=== PATIENT | male | born 1995 | race Two or more races ===

== ENCOUNTER 2016-04-05 21:09 | Emergency (ER) | payer OTHER ==
--- NOTE | 2016-04-05 21:31 | EDPHY ---
H & P Stated Complaint: CP/ FLU like symptoms - Personal History Current Tetanus/Diphtheria Vaccine: Unsure Current Tetanus Diphtheria and Acellular Pertussis (TDAP): Unsure - Medical/Surgical History Hx Asthma: No Hx Chronic Respiratory Disease: No Hx Diabetes: No Hx Cardiac Disease: No Hx Renal Disease: No Hx Cirrhosis: No Hx Alcoholism: No Hx HIV/AIDS: No Hx Splenectomy or Spleen Trauma: No - Social History Smoking Status: Current some day smoker Time Seen by Provider: 04/05/16 21:24 HPI/ROS: CHIEF COMPLAINT: Flu-like symptoms, chest pain HISTORY OF PRESENT ILLNESS: 20-year-old male whom, otherwise generally healthy with no history of chronic respiratory disease, states that 4 playing soccer yesterday he had a brief episode of midsternal chest plain however he was able to play 1 hour of aggressive soccer without eliciting chest pain with exertion, dyspnea with exertion, syncope. Today started to notice flu-like symptoms including fever, chills, myalgias. No cough. No nuchal rigidity. No headache. no current complaints of chest pain. No dyspnea. No rash. No international travel in the past month. No influenza vaccination. PRIMARY CARE PROVIDER: Dominik REVIEW OF SYSTEMS: A ten point review of systems was performed and is negative with the exception of the items mentioned in the HPI PAST MEDICAL & SURGICAL HISTORY: No History of coronary artery disease, coagulopathic disorder, hyperlipidemia SOCIAL HISTORY:intermittent cigarette use. No cocaine use. FAMILY HISTORY: No family history of thromboembolic disorder or premature coronary artery disease. PHYSICAL EXAM (Prior to examination, patient consented to physical exam, hands were washed and my usual and customary physical exam procedures followed) 1) GENERAL: Well-developed, well-nourished, alert and oriented. Appears to be in no acute distress. 2) HEAD: Normocephalic, atraumatic 3) HEENT: Pupils equal, round, reactive to light bilaterally. Sclera anicteric. Nasopharynx, oropharynx, clear, no lesions. Ears bilaterally with normal tympanic membranes. 4) NECK: Full range of motion, no meningeal signs. 5) LUNGS: Clear auscultation bilaterally, no wheezes, no rhonchi, no retractions. 6) HEART: Regular rate and rhythm, no murmur, no heave, no gallop. 7) ABDOMEN: No guarding, no rebound, no focal tenderness, negative McBurney's, negative Kenyon's, negative Rovsing's, negative peritoneal sign, 8) MUSCULOSKELETAL: Moving all extremities, no focal areas of tenderness, no obvious trauma. No peripheral edema or discoloration. 9) BACK: No CVA tenderness, no midline vertebral tenderness, no fluctuance, no step-off, no obvious trauma, no visual or palpable abnormality. 10) SKIN: No rash, no petechiae. 11) Psychiatric: Patient is oriented X 3, there is no agitation. DIFFERENTIAL DIAGNOSIS: In no particular order, including but not limited to myocardial ischemia, pulmonary embolus, chest wall pain, pleural inflammation and pulmonary infectious causes. (Richy Hernandez) Constitutional: Initial Vital Signs Temperature (C) 37.2 C 04/05/16 21:19 Heart Rate 97 04/05/16 21:19 Respiratory Rate 14 04/05/16 21:19 Blood Pressure 132/66 H 04/05/16 21:19 O2 Sat (%) 96 04/05/16 21:19 O2 Delivery Mode Room Air Allergies/Adverse Reactions: No Known Allergies Allergy (Unverified 04/05/16 21:19) Home Medications: Medication Instructions Recorded AZITHROMYCIN [Z-PACK] 500 mg PO DAILY #1 packet 04/05/16 Albuterol [Proventil Inhaler HFA 1 - 2 puffs IH Q4PRN PRN #1 mdi 04/05/16 (*)] Medical Decision Making ED Course/Re-evaluation: The patient was re-evaluated with serial examinations. We discussed his diagnostic results negative for influenza a, negative chest x-ray show no pneumothorax or hemothorax, normal sinus rhythm on the EKG. Regarding his complaints of chest pain, in the absence of significant family history of premature coronary artery disease, absence of cocaine use, absence of thromboembolic disorder, negative perc score, I think that NC, pulmonary embolus , less than likely in this patient. We discussed URI treatment. I have given him a DuoNeb treatment, will discharge him home with albuterol, azithromycin and recommend close follow-up. In the meantime should she developed chest pain , dyspnea, or any other symptoms, needs to return to the ER immediately for re- evaluation. He feels comfortable being discharged (Richy Hernandez) I did not see this patient while he was in the emergency department. However his care was discussed with the PA while the patient was in the department. I agree with treatment plan and management (Colin Dias) - Data Points Medications Given: Discontinued Medications Albuterol/Ipratropium (Duoneb) 3 ml IH EDNOW ONE Stop: 04/05/16 22:37 Last Admin: 04/05/16 23:01 Dose: 3 ml Departure - Departure Disposition: Home, Routine, Self-Care Clinical Impression: Upper respiratory infection Condition: Good Instructions: Upper Respiratory Infection (ED) Additional Instructions: Return to the emergency department immediately for change in breathing habits, if you have chest pain, she of back pain, shortness of breath, change in voice, change in swallowing habits, change in mental status, or any other symptoms that concern you. Adult Pain & Fever Control: We recommend Acetaminophen (Tylenol) and Ibuprofen (Motrin,Advil) for pain and fever control. When fever is high or pain severe, both drugs can be used at the same time, but at different intervals. Please note the time differences. Your dose is: Acetaminophen 1000mg every 6 hours Ibuprofen 800mg every 6 hours with food OR . Note: do not take Acetaminophen with Hydrocodone (Vicodin, Lortab) or Oycodone (Percocet). These medications also contain Acetaminophen. No more than 3000mg of Acetaminophen should be taken in 24 hours (for an adult). Referrals: DOMINIK Riddle,. [Clinic] - 04/08/16 Stand Alone Forms: School Excuse Prescriptions: Albuterol [Proventil Inhaler HFA (*)] 1 - 2 puffs IH Q4PRN PRN #1 mdi PRN Reason: Cough, Moderate AZITHROMYCIN [Z-PACK] 500 mg PO DAILY #1 packet
--- NOTE | 2016-04-05 21:37 | CPEKG ---
Heart Rate: 90 RR Interval: 667 P-R Interval: 172 QRSD Interval: 94 QT Interval: 352 QTC Interval: 431 P Hugo: 68 QRS Hugo: 60 T Wave Hugo: -10 EKG Severity - BORDERLINE ECG - EKG Impression: SINUS RHYTHM EKG Impression: BORDERLINE T ABNORMALITIES, INFERIOR LEADS Electronically Signed By: Colin Dias 05-Apr-2016 23:26:45
[2016-04-05] MEDS ORDERED: IPRATROPIUM/ALBUTEROL 3 ML DEYVIAL IH ONE (22:36)
[2016-04-05 23:11] VITALS: BP 141/83; PULSE 96; RESP 18; TEMP 99.3; O2SAT 95
== END 2016-04-05 23:10 | disposition home or self-care (01) ==
DX: J06.9 Acute upper respiratory infection, unspecified (principal); F17.200 Nicotine dependence, unspecified, uncomplicated

== ENCOUNTER 2017-04-28 13:53 | Emergency (ER) | payer OTHER ==
[2017-04-28 14:03] VITALS: RESP 16; O2SAT 95
--- NOTE | 2017-04-28 15:00 | EDPHY ---
H & P Stated Complaint: cough Time Seen by Provider: 04/28/17 14:56 - Personal History Current Tetanus/Diphtheria Vaccine: Yes Current Tetanus Diphtheria and Acellular Pertussis (TDAP): Yes - Medical/Surgical History Hx Asthma: No Hx Chronic Respiratory Disease: No Hx Diabetes: No Hx Cardiac Disease: No Hx Renal Disease: No Hx Cirrhosis: No Hx Alcoholism: No Hx HIV/AIDS: No Hx Splenectomy or Spleen Trauma: No Other PMH: denies - Social History Smoking Status: Current some day smoker Constitutional: Initial Vital Signs Temperature (C) 36.7 C 04/28/17 14:01 Heart Rate 83 04/28/17 14:01 Respiratory Rate 16 04/28/17 14:01 Blood Pressure 129/97 H 04/28/17 14:01 O2 Sat (%) 95 04/28/17 14:01 O2 Delivery Mode Room Air Allergies/Adverse Reactions: No Known Allergies Allergy (Unverified 04/28/17 14:01) Home Medications: Medication Instructions Recorded Albuterol [Proventil Inhaler] 1 - 2 puffs IH Q4 #1 mdi 04/28/17 guaiFENesin [Mucinex] 1,200 mg PO BID #20 tbmp.12hr 04/28/17 predniSONE 60 mg PO DAILY #3 tab 04/28/17 Medical Decision Making - Diagnostics Imaging Results: Imaging Impressions Chest X-Ray 04/28/17 14:53 Impression: Normal chest. Imaging: I viewed and interpreted images myself ED Course/Re-evaluation: CHIEF COMPLAINT: Cough HISTORY OF PRESENT ILLNESS: This patient is a 21 y/o male complaining of cough. This began Friday, three days ago, and has been worsening since onset. The cough is occasionally productive. Today, he felt very fatigued. Additionally, he has a pain at the base of his throat. This is present all the time, but is exacerbated by coughing. He denies fever, chills, vomiting, diarrhea, urinary complaints, or other associated symptoms. REVIEW OF SYSTEMS: A 10 point review of systems was performed and is negative with the exception of the elements mentioned in the history of present illness. PHYSICAL EXAM: HR, BP, O2 Sat, RR. Temp noted General Appearance: Alert, well hydrated, appropriate, and non-toxic appearing. Head: Atraumatic without scalp tenderness or obvious injury Eyes: Pupils equal, round, reactive to light and accommodation, EOMI, no trauma , no injection. Ears: Clear bilaterally, no perforation, normal landmarks Nose: Atraumatic, no rhinorrhea, clear. Throat: There is no erythema or exudates, no lesions, normal tonsils, mucus membranes moist. Neck: Supple, nontender, no lymphadenopathy. Respiratory: Coarse rhonchi, mild expiratory wheezes. No retractions, no distress, no accessory muscle use. Cardiovascular: Regular rate and rhythm, no murmurs, rubs, or gallops. Good capillary refill all extremities. Gastrointestinal: Abdomen is soft, nontender, non-distended, no masses. Musculoskeletal: Normal active ROM of all extremities, atraumatic. Neurological: Alert, appropriate, and interactive. Nonfocal neuro exam. Skin: No rashes, good turgor, no nodules on palpation. Past medical history: Denies Past surgical history: Noncontributory Family history: Noncontributory Social history: Single. Lives in [place]. Student at [employer]. DIFFERENTIAL DIAGNOSIS: The differential diagnosis included but was not limited to bronchitis, pneumonia , viral syndrome, influenza. MEDICAL DECISION MAKIN21 y/o male presents with 3 day history of cough. Coarse rhonchi and mild expiratory wheezes on exam. Likely bronchitis. Plan for chest x-ray. Chest x-ray negative for acute processes. Plan to d/c home in good condition with prescription for albuterol inhaler, prednisone, and Mucinex. I do not suspect bacterial etiology at this time. Symptoms consistent with viral bronchitis. He will follow up with his primary care provider. He is comfortable with this plan. Departure - Departure Disposition: Home, Routine, Self-Care Clinical Impression: Acute bronchitis Qualifiers: Bronchitis organism: other organism Qualified Code(s): J20.8 - Acute bronchitis due to other specified organisms Condition: Good Instructions: Acute Bronchitis (ED) Additional Instructions: 1. Use your albuterol inhaler as directed as needed for difficulty breathing. 2. Take Prednisone as prescribed. 3. Take Mucinex as prescribed. 4. Follow up with your primary care provider for symptoms unresolved. 5. Return to the emergency department for high fever, severe headache or neck pain, difficulty breathing, abdominal pain, uncontrollable vomiting, or other worsening of condition. Referrals: YULISA Riddle,. [Clinic] - As per Instructions Stand Alone Forms: School Excuse Prescriptions: Albuterol [Proventil Inhaler] 1 - 2 puffs IH Q4 #1 mdi guaiFENesin [Mucinex] 1,200 mg PO BID #20 tbmp.12hr predniSONE 60 mg PO DAILY #3 tab Report Scribed for: Talib Quispe Report Scribed by: Galina Palmer Date of Report: 04/28/17 Time of Report: 15:01
[2017-04-28 15:28] VITALS: BP 124/88; PULSE 78; TEMP 98.6
== END 2017-04-28 15:26 | disposition home or self-care (01) ==
DX: J20.8 Acute bronchitis due to other specified organisms (principal); F17.200 Nicotine dependence, unspecified, uncomplicated